=== PATIENT | female | born 1945 | race Caucasian/White ===

== ENCOUNTER → 2016-08-16 | Outpatient (CLI) | payer MEDICARE ==
[~2016-08-16] MED LIST: ALPR.25 PO; DYAZ37.52 PO; SIMV10TA PO; ST J81CH PO
[2016-08-16 09:39] LABS: HEMATOCRIT 40.1 % (35.0-46.0); MEAN CELL VOLUME 88.1 FL (80.0-100.0); MEAN CORPUSCULAR HEMOGLOBIN 29.2 PG (27.0-34.0); MEAN CORPUSCULAR HGB CONC 33.1 % (32.0-36.0); PLATELET COUNT 264 TH/MM3 (150-450); RED BLOOD COUNT 4.55 MIL/MM3 (4.00-5.30); RED CELL DISTRIBUTION WIDTH 12.8 % (11.6-17.2); REVIEW FLAG FINAL; WHITE BLOOD COUNT 9.2 TH/MM3 (4.0-11.0)
[2016-08-16 10:10] LABS: ALKALINE PHOSPHATASE 68 U/L (45-117); ALT (GPT) 26 U/L (10-53); ANION GAP 7 MEQ/L (5-15); AST (GOT) 20 U/L (15-37); BICARBONATE 29.5 MEQ/L (21.0-32.0); BLOOD UREA NITROGEN 22 MG/DL (7-18); CHLORIDE 103 MEQ/L (98-107); GLOMERULAR FILTRATION RATE 75 ML/MIN (>89); GLUCOSE,FASTING 93 MG/DL (74-99); HDL CHOLESTEROL 71.4 MG/DL (40.0-60.0); LDL CHOLESTEROL 50 MG/DL (0-99); POTASSIUM 4.3 MEQ/L (3.5-5.1); SODIUM (NA) 139 MEQ/L (136-145); TOTAL BILIRUBIN ADULT 0.4 MG/DL (0.2-1.0)
== END ==
LOC: CLAB 09:00
PROVIDERS: ATTEND Family Medicine
DX: F03.90 Unspecified dementia, unspecified severity, without behavioral disturbance, psychotic disturbance, mood disturbance, and anxiety (principal); D68.59 Other primary thrombophilia; E78.2 Mixed hyperlipidemia; I67.9 Cerebrovascular disease, unspecified; L20.84 Intrinsic (allergic) eczema; R41.3 Other amnesia
CPT/HCPCS: 36415; 80053; 80061; 84443; 85027

== ENCOUNTER → 2016-10-19 | Outpatient (CLI) | payer MEDICARE ==
[2016-10-19 09:31] LABS: AUTOMATED NEUTROPHIL # 5.2 TH/MM3 (1.8-7.7); BASOPHIL # 0.1 TH/MM3 (0-0.2); BASOPHIL % 1.1 % (0.0-2.0); EOSINOPHIL # 0.4 TH/MM3 (0-0.4); HEMATOCRIT 40.5 % (35.0-46.0); HEMO FLAGS DIFF FINAL; MEAN CELL VOLUME 88.8 FL (80.0-100.0); MEAN CORPUSCULAR HEMOGLOBIN 29.3 PG (27.0-34.0); MONO % 4.6 % (0.0-8.0); NEUT % 57.3 % (16.0-70.0); PLATELET COUNT 287 TH/MM3 (150-450); RED BLOOD COUNT 4.56 MIL/MM3 (4.00-5.30); RED CELL DISTRIBUTION WIDTH 13.3 % (11.6-17.2); WHITE BLOOD COUNT 9.1 TH/MM3 (4.0-11.0)
[2016-10-19 09:53] LABS: ANION GAP 8 MEQ/L (5-15); AST (GOT) 25 U/L (15-37); BICARBONATE 28.4 MEQ/L (21.0-32.0); BLOOD UREA NITROGEN 19 MG/DL (7-18); CHLORIDE 105 MEQ/L (98-107); GLOMERULAR FILTRATION RATE 64 ML/MIN (>89); GLUCOSE,FASTING 94 MG/DL (74-99); POTASSIUM 4.2 MEQ/L (3.5-5.1); SODIUM (NA) 141 MEQ/L (136-145)
[2016-10-19 09:54] LABS: ALT (GPT) 26 U/L (10-53)
[2016-10-19 10:04] LABS: ALKALINE PHOSPHATASE 75 U/L (45-117); TOTAL BILIRUBIN ADULT 0.5 MG/DL (0.2-1.0)
[2016-10-21 11:52] LABS: IGA SERUM 169 mg/dL (81-463); TISSUE TRANSGLUTAMINASE AB IGG ND U/mL (())
[2016-10-21 13:51] LABS: ENDOMYSIAL AB TITER ND (<1:5); TISSUE TRANSGLUTAMINASE AB LESS THAN 1 U/mL (())
== END ==
LOC: CLAB 08:38
PROVIDERS: ATTEND Internal Medicine Gastroenterology
DX: K63.89 Other specified diseases of intestine (principal); R19.7 Diarrhea, unspecified; R10.32 Left lower quadrant pain; R63.4 Abnormal weight loss; Z80.0 Family history of malignant neoplasm of digestive organs
CPT/HCPCS: 36415; 80053; 80074; 82784; 83516; 84443; 85025

== ENCOUNTER → 2016-10-27 | Outpatient (CLI) | payer MEDICARE ==
[2016-10-27 17:17] LABS: C. DIFF EPI 027 PRESUMPTIVE NEGATIVE (NEGATIVE); C. DIFF TOXIN PCR NEGATIVE (NEGATIVE)
[2016-10-29 12:44] LABS: FECAL FAT % FAT 14 % fat (< 20)
== END ==
LOC: PLAB 13:10
PROVIDERS: ATTEND Internal Medicine Gastroenterology
DX: R10.30 Lower abdominal pain, unspecified (principal); R10.32 Left lower quadrant pain; K63.89 Other specified diseases of intestine; R19.7 Diarrhea, unspecified; Z80.0 Family history of malignant neoplasm of digestive organs; R63.4 Abnormal weight loss
CPT/HCPCS: 82710; 87493

== ENCOUNTER → 2017-04-28 | Outpatient (CLI) | payer MEDICARE ==
[2017-04-28 12:22] LABS: HEMATOCRIT 40.4 % (35.0-46.0); HEMOGLOBIN 13.3 GM/DL (11.6-15.3); MEAN CELL VOLUME 90.2 FL (80.0-100.0); MEAN CORPUSCULAR HEMOGLOBIN 29.7 PG (27.0-34.0); MEAN CORPUSCULAR HGB CONC 32.9 % (32.0-36.0); PLATELET COUNT 286 TH/MM3 (150-450); RED BLOOD COUNT 4.48 MIL/MM3 (4.00-5.30); WHITE BLOOD COUNT 8.3 TH/MM3 (4.0-11.0)
[2017-04-28 12:33] LABS: CHOLESTEROL 144 MG/DL (120-200)
[2017-04-28 12:44] LABS: ALKALINE PHOSPHATASE 67 U/L (45-117); ALT (GPT) 24 U/L (10-53); CHOLESTEROL/ HDL RATIO 1.83 RATIO; HDL CHOLESTEROL 78.6 MG/DL (40.0-60.0); LDL CHOLESTEROL 45 MG/DL (0-99); TOTAL BILIRUBIN ADULT 0.5 MG/DL (0.2-1.0); TOTAL PROTEIN 7.9 GM/DL (6.4-8.2); TRIGLYCERIDES 100 MG/DL (42-150)
[2017-04-28 12:49] LABS: ALBUMIN 4.2 GM/DL (3.4-5.0); AST (GOT) 29 U/L (15-37); BLOOD UREA NITROGEN 18 MG/DL (7-18); CALCIUM 9.2 MG/DL (8.5-10.1); CHLORIDE 104 MEQ/L (98-107); CREATININE 0.79 MG/DL (0.50-1.00); GLOMERULAR FILTRATION RATE 72 ML/MIN (>89); GLUCOSE,FASTING 88 MG/DL (74-99); SODIUM (NA) 141 MEQ/L (136-145)
== END ==
LOC: CLAB 11:41
PROVIDERS: ATTEND Family Medicine
DX: F03.90 Unspecified dementia, unspecified severity, without behavioral disturbance, psychotic disturbance, mood disturbance, and anxiety (principal); D68.59 Other primary thrombophilia; E78.2 Mixed hyperlipidemia; I67.9 Cerebrovascular disease, unspecified; L20.84 Intrinsic (allergic) eczema; R41.3 Other amnesia
CPT/HCPCS: 36415; 80053; 80061; 84443; 85027

== ENCOUNTER 2017-06-03 10:44 | Observation (INO) | payer MEDICARE ==
[~2017-06-03] VITALS: Ht 160 cm; Wt 65.0 kg
[2017-06-03 10:46] VITALS: BP 148/101; PULSE 69; RESP 22; TEMP 98.3; O2SAT 98
[2017-06-03] MEDS ORDERED: [UNRECOGNIZED DRUG - REMARK] (11:07)
[2017-06-03] MEDS ORDERED: LISI2.5T3 PO (11:07)
[2017-06-03] MEDS ORDERED: ASPI-516 CHEW (11:07)
[2017-06-03] MEDS ORDERED: CITA10TA4 PO (11:07)
[2017-06-03] MEDS ORDERED: SODIUM CHLORIDE 0.9% FLUSH 10 ML FLUSH IVF PRN (11:15)
[2017-06-03] MEDS ORDERED: SODIUM CHLORID 0.9% 500 ML INJ 500 ML IV ONE (11:15)
[2017-06-03 11:39] LABS: AUTOMATED NEUTROPHIL # 4.7 TH/MM3 (1.8-7.7); BASOPHIL # 0.1 TH/MM3 (0-0.2); BASOPHIL % 0.7 % (0.0-2.0); EOSINOPHIL # 0.1 TH/MM3 (0-0.4); EOSINOPHIL % 1.2 % (0.0-4.0); HEMATOCRIT 38.3 % (35.0-46.0); HEMOGLOBIN 13.3 GM/DL (11.6-15.3); LYMPH % 35.8 % (9.0-44.0); LYMPHOCYTE # 2.9 TH/MM3 (1.0-4.8); MEAN CELL VOLUME 88.4 FL (80.0-100.0); MEAN CORPUSCULAR HEMOGLOBIN 30.7 PG (27.0-34.0); MEAN CORPUSCULAR HGB CONC 34.7 % (32.0-36.0); MEAN PLATELET VOLUME 7.6 FL (7.0-11.0); MONOCYTE # 0.4 TH/MM3 (0-0.9); NEUT % 57.3 % (16.0-70.0); PLATELET COUNT 271 TH/MM3 (150-450); RED BLOOD COUNT 4.33 MIL/MM3 (4.00-5.30); WHITE BLOOD COUNT 8.2 TH/MM3 (4.0-11.0)
--- NOTE | 2017-06-03 11:40 | PD ---
HPI Chief Complaint: Chest Pain Time Seen by Provider: 10:55 Travel History International Travel<30 days: No Contact w/Intl Traveler<30days: No Traveled to known affect area: No History of Present Illness HPI 71y female with a history of IBS and occipital CVA presents to the ED c/o midsternal chest pain that started approximately 1 week ago as she was exercising. Says her pain is rated 7/10, described as heavy, worse with exertion. Says she has radiation of pain and shortness of breath with exertion but otherwise denies radiation. Denies nausea, vomiting, diaphoresis. She takes an ASA daily but no other blood thinners. She denies history of DE, CHF, blood clots. PFSH Past Medical History Asthma: No Autoimmune Disease: No Cancer: No Cardiovascular Problems: Yes COPD: No Cerebrovascular Accident: Yes (occipital ) Diabetes: No Diminished Hearing: No Diverticulitis: Yes Gastrointestinal Disorders: Yes (GERD, IBS) Glaucoma: No Hepatitis: No Hiatal Hernia: Yes Hypertension: Yes Immune Disorder: No Medical other: No Musculoskeletal: Yes (ARTHRITIS) Neurologic: No Psychiatric: No Reproductive: No Respiratory: Yes (SLEEP APNEA) Immunizations Current: Yes Sleep Apnea: No Thyroid Disease: No Influenza Vaccination: No Menopausal: Yes Past Surgical History Abdominal Surgery: Yes (COLON RESECTION, HERNIA VENTRAL) AICD: No Cholecystectomy: Yes Ear Surgery: No Endocrine Surgery: No Eye Surgery: Yes (LEFT EYE CAT. SX.) Genitourinary Surgery: Yes (URETHROTOMY) Hysterectomy: Yes Joint Replacement: No Oral Surgery: Yes (T&A AGE 30) Pacemaker: No Tonsillectomy: Yes Other Surgery: Yes Social History Alcohol Use: No (RARELY) Tobacco Use: No Substance Use: No Allergies-Medications (Allergen,Severity, Reaction): Coded Allergies: Sulfa (Sulfonamide Antibiotics) (Unverified Allergy, Severe, Hives, 06/03/17 ) pentazocine (Unverified Allergy, Severe, INCR HR, 06/03/17) *MDRO Multi-Drug Resistant Organism (Unverified Allergy, Unknown, 06/03/17) MRSA acetaminophen (Unverified Adverse Reaction, Unknown, "MADE ME NUTS", ) oxycodone (Unverified Adverse Reaction, Unknown, "MADE ME NUTS", 06/03/17) Uncoded Allergies: ADHESIVE TAPE (Allergy, Severe, Rash, 12/13/13) PER PATIENT "BAD RASH" "BLISTERS" Reported Meds & Prescriptions Reported Meds & Active Scripts Active Reported Lisinopril 2.5 Mg Tab 2.5 Mg PO DAILY Aspirin 81 Mg Chew 81 Mg CHEW DAILY [memory loss med] Citalopram (Citalopram Hydrobromide) 10 Mg Tab 10 Mg PO DAILY Simvastatin 10 Mg Tab 10 Mg PO DAILY Review of Systems Except as stated in HPI: all other systems reviewed are Neg Physical Exam Narrative GENERAL: WD, WN in NAD, resting comfortably in bed SKIN: Warm and dry. HEAD: Atraumatic. Normocephalic. EYES: Pupils equal and round. No scleral icterus. No injection or drainage. ENT: No nasal bleeding or discharge. Mucous membranes pink and moist. NECK: Trachea midline. No JVD. no lymphadenopathy CARDIOVASCULAR: Regular rate and rhythm. RESPIRATORY: No accessory muscle use. Clear to auscultation. Breath sounds equal bilaterally. GASTROINTESTINAL: Abdomen soft, non-tender, nondistended. MUSCULOSKELETAL: Extremities without clubbing, cyanosis, or edema. No obvious deformities. no CVA tenderness NEUROLOGICAL: Awake and alert. No obvious cranial nerve deficits. Motor grossly within normal limits. Five out of 5 muscle strength in the arms and legs. Normal speech. PSYCHIATRIC: Appropriate mood and affect; insight and judgment normal. Data Data Last Documented VS Vital Signs Date Time Temp Pulse Resp B/P (MAP) Pulse Ox O2 Delivery O2 Flow Rate FiO2 06/03/17 10:46 98.3 69 22 148/101 (117) 98 Room Air Orders Orders Electrocardiogram (06/03/17 11:04) Ckmb (Isoenzyme) Profile (06/03/17 11:04) Complete Blood Count With Diff (06/03/17 11:04) Comprehensive Metabolic Panel (06/03/17 11:04) Magnesium (Mg) (06/03/17 11:04) Prothrombin Time / Inr (Pt) (06/03/17 11:04) Act Partial Throm Time (Ptt) (06/03/17 11:04) Troponin I (06/03/17 11:04) Chest, Single Ap (06/03/17 11:04) Ecg Monitoring (06/03/17 11:04) Bilateral Bp Monitoring (06/03/17 11:04) Iv Access Insert/Monitor (06/03/17 11:04) Oximetry (06/03/17 11:04) Oxygen Administration (06/03/17 11:04) Sodium Chloride 0.9% Flush (Ns Flush) (06/03/17 11:15) Sodium Chlorid 0.9% 500 Ml Inj (Ns 500 M (06/03/17 11:15) CKMB (06/03/17 11:15) CKMB% (06/03/17 11:15) Activity Bed Rest With Brp (06/03/17 12:13) Vital Signs (Adult) Q4H (06/03/17 12:13) Cardiac Rhythm .As Directed (06/03/17 12:13) Notify Dr: Other .PRN (06/03/17 12:13) Notify Parameters (06/03/17 12:13) Resp Oxygen Nasal Cannula (06/03/17 ) Diet Heart Healthy (06/03/17 Lunch) Ckmb (Isoenzyme) Profile (06/03/17 14:15) Ckmb (Isoenzyme) Profile (06/03/17 17:15) Troponin I (06/03/17 14:15) Troponin I (06/03/17 17:15) Electrocardiogram (06/03/17 14:15) Electrocardiogram (06/03/17 17:15) ^ Obtain (06/03/17 12:13) Data Coordinator / Telemetry GENARO.Q8H (06/03/17 12:13) Admit Order (Ed Use Only) (06/03/17 12:13) Labs Laboratory Tests Test 06/03/17 11:15 White Blood Count 8.2 TH/MM3 Red Blood Count 4.33 MIL/MM3 Hemoglobin 13.3 GM/DL Hematocrit 38.3 % Mean Corpuscular Volume 88.4 FL Mean Corpuscular Hemoglobin 30.7 PG Mean Corpuscular Hemoglobin Concent 34.7 % Red Cell Distribution Width 13.0 % Platelet Count 271 TH/MM3 Mean Platelet Volume 7.6 FL Neutrophils (%) (Auto) 57.3 % Lymphocytes (%) (Auto) 35.8 % Monocytes (%) (Auto) 5.0 % Eosinophils (%) (Auto) 1.2 % Basophils (%) (Auto) 0.7 % Neutrophils # (Auto) 4.7 TH/MM3 Lymphocytes # (Auto) 2.9 TH/MM3 Monocytes # (Auto) 0.4 TH/MM3 Eosinophils # (Auto) 0.1 TH/MM3 Basophils # (Auto) 0.1 TH/MM3 CBC Comment DIFF FINAL Differential Comment Prothrombin Time 10.2 SEC Prothromb Time International Ratio 1.0 RATIO Activated Partial Thromboplast Time 25.0 SEC Blood Urea Nitrogen 19 MG/DL Creatinine 0.71 MG/DL Random Glucose 108 MG/DL Total Protein 7.1 GM/DL Albumin 3.9 GM/DL Calcium Level 9.4 MG/DL Magnesium Level 2.1 MG/DL Alkaline Phosphatase 64 U/L Aspartate Amino Transf (AST/SGOT) 19 U/L Alanine Aminotransferase (ALT/SGPT) 23 U/L Total Bilirubin 0.3 MG/DL Sodium Level 141 MEQ/L Potassium Level 3.6 MEQ/L Chloride Level 103 MEQ/L Carbon Dioxide Level 29.8 MEQ/L Anion Gap 8 MEQ/L Estimat Glomerular Filtration Rate 81 ML/MIN Total Creatine Kinase 167 U/L Creatine Kinase MB 2.3 NG/ML Troponin I LESS THAN 0.02 NG/ML MDM Medical Decision Making Medical Screen Exam Complete: Yes Emergency Medical Condition: Yes Differential Diagnosis angina, unstable angina, NSTEMI Narrative Course 71y female with a history of IBS and occipital CVA presents to the ED c/o midsternal chest pain that started approximately 1 week ago as she was exercising. Says her pain is rated 7/10 at its worse, described as heavy, increases with exertion. Currently, the pain is mild. Says she has radiation of pain and shortness of breath with exertion but otherwise denies radiation. Denies nausea, vomiting, diaphoresis. She takes an ASA daily but no other blood thinners. She denies history of DE, CHF, blood clots. States her last stress test was in 2007 and she does not remember her last echocardiogram. Says she follows Dr. Verma but does not know why. Vital signs stable Physical exam findings unremarkable. EKG sinus rhythm without ST elevation or depressions, Incomplete RBBB. This is similar to EKG from 2016 in the EMR. CXR without acute process. Laboratory Tests Test 06/03/17 11:15 White Blood Count 8.2 TH/MM3 Red Blood Count 4.33 MIL/MM3 Hemoglobin 13.3 GM/DL Hematocrit 38.3 % Mean Corpuscular Volume 88.4 FL Mean Corpuscular Hemoglobin 30.7 PG Mean Corpuscular Hemoglobin Concent 34.7 % Red Cell Distribution Width 13.0 % Platelet Count 271 TH/MM3 Mean Platelet Volume 7.6 FL Neutrophils (%) (Auto) 57.3 % Lymphocytes (%) (Auto) 35.8 % Monocytes (%) (Auto) 5.0 % Eosinophils (%) (Auto) 1.2 % Basophils (%) (Auto) 0.7 % Neutrophils # (Auto) 4.7 TH/MM3 Lymphocytes # (Auto) 2.9 TH/MM3 Monocytes # (Auto) 0.4 TH/MM3 Eosinophils # (Auto) 0.1 TH/MM3 Basophils # (Auto) 0.1 TH/MM3 CBC Comment DIFF FINAL Differential Comment Prothrombin Time 10.2 SEC Prothromb Time International Ratio 1.0 RATIO Activated Partial Thromboplast Time 25.0 SEC Blood Urea Nitrogen 19 MG/DL Creatinine 0.71 MG/DL Random Glucose 108 MG/DL Total Protein 7.1 GM/DL Albumin 3.9 GM/DL Calcium Level 9.4 MG/DL Magnesium Level 2.1 MG/DL Alkaline Phosphatase 64 U/L Aspartate Amino Transf (AST/SGOT) 19 U/L Alanine Aminotransferase (ALT/SGPT) 23 U/L Total Bilirubin 0.3 MG/DL Sodium Level 141 MEQ/L Potassium Level 3.6 MEQ/L Chloride Level 103 MEQ/L Carbon Dioxide Level 29.8 MEQ/L Anion Gap 8 MEQ/L Estimat Glomerular Filtration Rate 81 ML/MIN Total Creatine Kinase 167 U/L Creatine Kinase MB 2.3 NG/ML Troponin I LESS THAN 0.02 NG/ML Cardiac enzymes negative. Review of EMR shows last echocardiogram in 2010 with showed EF 55-60%. Stress test not on record here. Pt will be admitted to the chest pain center for observation. Pt did not drink coffee today and she says she ate an egg omelet. Diagnosis Primary Impression: Unstable angina Admitting Information Admitting Physician Requests: Observation Condition: Stable Leanne Haney Jun 03, 2017 11:40
[2017-06-03 11:48] LABS: PROTHROMBIN TIME - PATIENT 10.2 SEC (9.8-11.6)
[2017-06-03 11:51] LABS: ALBUMIN 3.9 GM/DL (3.4-5.0); ALT (GPT) 23 U/L (10-53); AST (GOT) 19 U/L (15-37); BICARBONATE 29.8 MEQ/L (21.0-32.0); BLOOD UREA NITROGEN 19 MG/DL (7-18); CALCIUM 9.4 MG/DL (8.5-10.1); CHLORIDE 103 MEQ/L (98-107); CREATININE 0.71 MG/DL (0.50-1.00); GLOMERULAR FILTRATION RATE 81 ML/MIN (>89); GLUCOSE,RANDOM 108 MG/DL (74-106); MAGNESIUM 2.1 MG/DL (1.5-2.5); SODIUM (NA) 141 MEQ/L (136-145)
[2017-06-03 11:56] LABS: ALKALINE PHOSPHATASE 64 U/L (45-117); TOTAL BILIRUBIN ADULT 0.3 MG/DL (0.2-1.0); TOTAL PROTEIN 7.1 GM/DL (6.4-8.2); TROPONIN I LESS THAN 0.02 NG/ML (0.02-0.05)
--- NOTE | 2017-06-03 11:57 | RADRPT ---
EXAM DATE/TIME: 06/03/2017 11:31 [facility] COMPARISON: No previous studies available for comparison. INDICATIONS : Chest pain. MEDICAL HISTORY : high blood pressure. SURGICAL HISTORY : None. ENCOUNTER: Initial ACUITY: 1 day PAIN SCORE: 7/10 LOCATION: Bilateral chest FINDINGS: A single view of the chest demonstrates the lungs to be symmetrically aerated without evidence of mas s, infiltrate or effusion. The cardiomediastinal contours are unremarkable. Osseous structures are intact. CONCLUSION: No acute disease. Ramos Lloyd MD on June 03, 2017 at 11:54 Board Certified Radiologist. This report was verified electronically.
[2017-06-03 13:10] VITALS: BP 137/61; PULSE 60; RESP 14; O2SAT 96
--- NOTE | 2017-06-03 13:42 | HHI.HP ---
HPI Primary Care Physician Ashley Patrick MD Chief Complaint Chest pain History of Present Illness THIS DICTATION IS AN ERROR. PLEASE [email or web address] H&P IS IN DIFFERENT DICTATION. Past Family Social History Allergies: Coded Allergies: Sulfa (Sulfonamide Antibiotics) (Unverified Allergy, Severe, Hives, 06/03/17 ) pentazocine (Unverified Allergy, Severe, INCR HR, 06/03/17) *MDRO Multi-Drug Resistant Organism (Unverified Allergy, Unknown, 06/03/17) MRSA acetaminophen (Unverified Adverse Reaction, Unknown, "MADE ME NUTS", ) oxycodone (Unverified Adverse Reaction, Unknown, "MADE ME NUTS", 06/03/17) Uncoded Allergies: ADHESIVE TAPE (Allergy, Severe, Rash, 12/13/13) PER PATIENT "BAD RASH" "BLISTERS" Reported Medications Reported Meds & Active Scripts Active Reported Lisinopril 2.5 Mg Tab 2.5 Mg PO DAILY Aspirin 81 Mg Chew 81 Mg CHEW DAILY [memory loss med] Citalopram (Citalopram Hydrobromide) 10 Mg Tab 10 Mg PO DAILY Simvastatin 10 Mg Tab 10 Mg PO DAILY Active Ordered Medications Current Medications Medications (Trade) Dose Ordered Sig/Carina Route Start Time Stop Time Status Last Admin (NS Flush) 2 ml UNSCH PRN IVF 06/03/17 11:15 Physical Exam Vital Signs Vital Signs Date Time Temp Pulse Resp B/P (MAP) Pulse Ox O2 Delivery O2 Flow Rate FiO2 06/03/17 10:46 98.3 69 22 148/101 (117) 98 Room Air Laboratory Laboratory Tests Test 06/03/17 11:15 White Blood Count 8.2 Red Blood Count 4.33 Hemoglobin 13.3 Hematocrit 38.3 Mean Corpuscular Volume 88.4 Mean Corpuscular Hemoglobin 30.7 Mean Corpuscular Hemoglobin Concent 34.7 Red Cell Distribution Width 13.0 Platelet Count 271 Mean Platelet Volume 7.6 Neutrophils (%) (Auto) 57.3 Lymphocytes (%) (Auto) 35.8 Monocytes (%) (Auto) 5.0 Eosinophils (%) (Auto) 1.2 Basophils (%) (Auto) 0.7 Neutrophils # (Auto) 4.7 Lymphocytes # (Auto) 2.9 Monocytes # (Auto) 0.4 Eosinophils # (Auto) 0.1 Basophils # (Auto) 0.1 CBC Comment DIFF FINAL Differential Comment Prothrombin Time 10.2 Prothromb Time International Ratio 1.0 Activated Partial Thromboplast Time 25.0 Blood Urea Nitrogen 19 Creatinine 0.71 Random Glucose 108 Total Protein 7.1 Albumin 3.9 Calcium Level 9.4 Magnesium Level 2.1 Alkaline Phosphatase 64 Aspartate Amino Transf (AST/SGOT) 19 Alanine Aminotransferase (ALT/SGPT) 23 Total Bilirubin 0.3 Sodium Level 141 Potassium Level 3.6 Chloride Level 103 Carbon Dioxide Level 29.8 Anion Gap 8 Estimat Glomerular Filtration Rate 81 Total Creatine Kinase 167 Creatine Kinase MB 2.3 Troponin I LESS THAN 0.02 Result Diagram: 06/03/17 1115 06/03/17 111 Caprinjuan antonio VTE Risk Assessment Caprini VTE Risk Assessment: Mod/High Risk (score >= 2) Caprini Risk Assessment Model Point Value = 1 Point Value = 2 Point Value = 3 Point Value = 5 Age 41-60 Minor surgery BMI > 25 kg/m2 Swollen legs Varicose veins or History of unexplained or recurrent spontaneous Oral contraceptives or hormone replacement Sepsis (< 1 month) Serious lung disease, including pneumonia (< 1 month) Abnormal pulmonary function Acute myocardial infarction Congestive heart failure (< 1 month) History of inflammatory bowel disease Medical patient at bed rest Age 61-74 Arthroscopic surgery Major open surgery (> 45 min) Laparoscopic surgery (> 45 min) Malignancy Confined to bed (> 72 hours) Immobilizing plaster cast Central venous access Age >= 75 History of VTE Family history of VTE Factor V Leiden Prothrombin [id number] Lupus anticoagulant Anticardiolipin antibodies Elevated serum homocysteine Heparin-induced thrombocytopenia Other congenital or acquired thrombophilia Stroke (< 1 month) Elective arthroplasty Hip, pelvis, or leg fracture Acute spinal cord injury (< 1 month) Prophylaxis Regimen Total Risk Factor Score Risk Level Prophylaxis Regimen 0-1 Low Early ambulation 2 Moderate Order ONE of the following: *Sequential Compression Device (SCD) *Heparin 5000 units SQ BID 3-4 Higher Order ONE of the following medications: *Heparin 5000 units SQ TID *Enoxaparin/Lovenox 40 mg SQ daily (WT < 150 kg, CrCl > 30 mL/min) *Enoxaparin/Lovenox 30 mg SQ daily (WT < 150 kg, CrCl > 10-29 mL/min) *Enoxaparin/Lovenox 30 mg SQ BID (WT < 150 kg, CrCl > 30 mL/min) AND/OR *Sequential Compression Device (SCD) 5 or more Highest Order ONE of the following medications: *Heparin 5000 units SQ TID (Preferred with Epidurals) *Enoxaparin/Lovenox 40 mg SQ daily (WT < 150 kg, CrCl > 30 mL/min) *Enoxaparin/Lovenox 30 mg SQ daily (WT < 150 kg, CrCl > 10-29 mL/min) *Enoxaparin/Lovenox 30 mg SQ BID (WT < 150 kg, CrCl > 30 mL/min) AND *Sequential Compression Device (SCD) Vinny Casper Jun 03, 2017 13:42
[2017-06-03 13:54] VITALS: BP 135/90; PULSE 67; RESP 18; TEMP 97.8; O2SAT 97
[2017-06-03] MEDS: PRAVASTATIN SOD 20 MG TAB PO SCH (14:32)
[2017-06-03] MEDS: LISINOPRIL 5 MG TAB PO SCH (14:32)
--- NOTE | 2017-06-03 14:57 | HHI.HP ---
[facility] Primary Care Physician Ashley Patrick MD Chief Complaint Chest pain History of Present Illness This is a 71-year-old female that presents to ED via private vehicle with history of CVA, hypertension, and hyperlipidemia with a complaint of chest pressure for 1 week. States the discomfort is been constant but is intensified when she goes for daily morning walk in the time the discomfort also radiates down left arm. She has tried nothing for the discomfort. She saw her curb and gutter laborer today and was galvez to go to ED. She's had some mild shortness of breath with her symptoms. No nausea diaphoresis. Denies prior history of CAD. States she's only and 1 stress test and was about 10 years ago and that was okay. Denies recent illness. Denies fevers or chills. Review of Systems General: Patient denies fevers, chills recent, and recent travel HEENT: Patient denies headache, sore throat, difficulty swallowing. Cardiovascular: Has the chest discomfort as mentioned above. Denies sensation of heart beating rapidly or irregularly. No syncope. Denies diaphoresis. Respiratory: Mild shortness of breath. Denies inspirational chest discomfort. Denies coughing wheezing or hemoptysis. GI: Patient denies nausea, vomiting, diarrhea, abdominal pain, bloody stools. Musculoskeletal: Patient denies joint pain or edema. Denies calf pain or edema. Neurovascular: Patient denies numbness, tingling, weakness in extremities. Denies headache. Endocrine: Denies polyuria and polydipsia. Hematologic: Denies easy bruising. Skin: Denies rash or itching. Past Family Social History Allergies: Coded Allergies: Sulfa (Sulfonamide Antibiotics) (Unverified Allergy, Severe, Hives, 06/03/17 ) pentazocine (Unverified Allergy, Severe, INCR HR, 06/03/17) *MDRO Multi-Drug Resistant Organism (Unverified Allergy, Unknown, 06/03/17) MRSA acetaminophen (Unverified Adverse Reaction, Unknown, "MADE ME NUTS", ) oxycodone (Unverified Adverse Reaction, Unknown, "MADE ME NUTS", 06/03/17) Uncoded Allergies: ADHESIVE TAPE (Allergy, Severe, Rash, 12/13/13) PER PATIENT "BAD RASH" "BLISTERS" Past Medical History CVA in 2007. Hypertension hyperlipidemia. Denies diabetes and known CAD. Past Surgical History : Resection, hiatal hernia, cataract, tonsillectomy, and cholecystectomy. Reported Medications Reported Meds & Active Scripts Active Reported Lisinopril 2.5 Mg Tab 2.5 Mg PO DAILY Aspirin 81 Mg Chew 81 Mg CHEW DAILY [memory loss med] Citalopram (Citalopram Hydrobromide) 10 Mg Tab 10 Mg PO DAILY Simvastatin 10 Mg Tab 10 Mg PO DAILY Active Ordered Medications Current Medications Medications (Trade) Dose Ordered Sig/Carina Route Start Time Stop Time Status Last Admin (NS Flush) 2 ml UNSCH PRN IVF 06/03/17 11:15 (CeleXA) 10 mg DAILY PO 06/04/17 09:00 (Prinivil) 2.5 mg DAILY PO 06/03/17 13:45 06/03/17 14:32 (Pravachol) 20 mg DAILY PO 06/03/17 13:45 06/03/17 14:32 Family History Denies family history of CAD. Social History Lifetime nonsmoker. Denies alcohol or illicit drugs. Physical Exam Vital Signs Vital Signs Date Time Temp Pulse Resp B/P (MAP) Pulse Ox O2 Delivery O2 Flow Rate FiO2 06/03/17 13:54 97.8 67 18 135/90 (105) 97 06/03/17 13:10 60 14 137/61 (86) 96 Room Air 06/03/17 10:46 98.3 69 22 148/101 (117) 98 Room Air Physical Exam GENERAL: This is a well-nourished, well-developed patient, in no apparent distress. Patient speaks in clear complete sentences. Patient is pleasant. HEENT: Head is atraumatic and normocephalic. Neck is supple without lymphadenopathy and trachea is midline. No JVD or carotid bruits. CARDIOVASCULAR: Regular rate and rhythm without murmurs, gallops, or rubs. RESPIRATORY: Clear to auscultation. Breath sounds equal bilaterally. No wheezes , rales, or rhonchi. Chest wall is nontender. No use of accessory muscles. GASTROINTESTINAL: Abdomen is nontender, nondistended. Abdomen soft. No obvious pulsatile mass or bruit. No CVA tenderness. Strong femoral pulses bilaterally. Normal bowel sounds in all quadrants. MUSCULOSKELETAL: Patient is moving upper and lower extremities freely. No calf tenderness or edema, no Homans sign. Strong pulses in upper and lower extremities. NEUROLOGICAL: Patient is alert and oriented. Cranial nerves 2-12 are grossly intact. No focal deficits and speech is clear. SKIN: No rash and turgor is normal. Laboratory Laboratory Tests Test 06/03/17 11:15 White Blood Count 8.2 Red Blood Count 4.33 Hemoglobin 13.3 Hematocrit 38.3 Mean Corpuscular Volume 88.4 Mean Corpuscular Hemoglobin 30.7 Mean Corpuscular Hemoglobin Concent 34.7 Red Cell Distribution Width 13.0 Platelet Count 271 Mean Platelet Volume 7.6 Neutrophils (%) (Auto) 57.3 Lymphocytes (%) (Auto) 35.8 Monocytes (%) (Auto) 5.0 Eosinophils (%) (Auto) 1.2 Basophils (%) (Auto) 0.7 Neutrophils # (Auto) 4.7 Lymphocytes # (Auto) 2.9 Monocytes # (Auto) 0.4 Eosinophils # (Auto) 0.1 Basophils # (Auto) 0.1 CBC Comment DIFF FINAL Differential Comment Prothrombin Time 10.2 Prothromb Time International Ratio 1.0 Activated Partial Thromboplast Time 25.0 D-Dimer Quantitative (PE/DVT) 0.28 Blood Urea Nitrogen 19 Creatinine 0.71 Random Glucose 108 Total Protein 7.1 Albumin 3.9 Calcium Level 9.4 Magnesium Level 2.1 Alkaline Phosphatase 64 Aspartate Amino Transf (AST/SGOT) 19 Alanine Aminotransferase (ALT/SGPT) 23 Total Bilirubin 0.3 Sodium Level 141 Potassium Level 3.6 Chloride Level 103 Carbon Dioxide Level 29.8 Anion Gap 8 Estimat Glomerular Filtration Rate 81 Total Creatine Kinase 167 Creatine Kinase MB 2.3 Troponin I LESS THAN 0.02 Result Diagram: 06/03/17 1115 06/03/17 1115 Imaging Last 48 hours Impressions Chest X-Ray 06/03/17 1104 Signed Impressions: Service Date/Time: Saturday, June 03, 2017 11:31 - CONCLUSION: No acute disease. Ramos Lloyd MD Course EKG: Initial EKG has sinus rhythm with a complete right bundle branch block without significant ST segment depressions or elevations. Caprini VTE Risk Assessment Caprini VTE Risk Assessment: Mod/High Risk (score >= 2) Caprini Risk Assessment Model Point Value = 1 Point Value = 2 Point Value = 3 Point Value = 5 Age 41-60 Minor surgery BMI > 25 kg/m2 Swollen legs Varicose veins or History of unexplained or recurrent spontaneous Oral contraceptives or hormone replacement Sepsis (< 1 month) Serious lung disease, including pneumonia (< 1 month) Abnormal pulmonary function Acute myocardial infarction Congestive heart failure (< 1 month) History of inflammatory bowel disease Medical patient at bed rest Age 61-74 Arthroscopic surgery Major open surgery (> 45 min) Laparoscopic surgery (> 45 min) Malignancy Confined to bed (> 72 hours) Immobilizing plaster cast Central venous access Age >= 75 History of VTE Family history of VTE Factor V Leiden Prothrombin [id number] Lupus anticoagulant Anticardiolipin antibodies Elevated serum homocysteine Heparin-induced thrombocytopenia Other congenital or acquired thrombophilia Stroke (< 1 month) Elective arthroplasty Hip, pelvis, or leg fracture Acute spinal cord injury (< 1 month) Prophylaxis Regimen Total Risk Factor Score Risk Level Prophylaxis Regimen 0-1 Low Early ambulation 2 Moderate Order ONE of the following: *Sequential Compression Device (SCD) *Heparin 5000 units SQ BID 3-4 Higher Order ONE of the following medications: *Heparin 5000 units SQ TID *Enoxaparin/Lovenox 40 mg SQ daily (WT < 150 kg, CrCl > 30 mL/min) *Enoxaparin/Lovenox 30 mg SQ daily (WT < 150 kg, CrCl > 10-29 mL/min) *Enoxaparin/Lovenox 30 mg SQ BID (WT < 150 kg, CrCl > 30 mL/min) AND/OR *Sequential Compression Device (SCD) 5 or more Highest Order ONE of the following medications: *Heparin 5000 units SQ TID (Preferred with Epidurals) *Enoxaparin/Lovenox 40 mg SQ daily (WT < 150 kg, CrCl > 30 mL/min) *Enoxaparin/Lovenox 30 mg SQ daily (WT < 150 kg, CrCl > 10-29 mL/min) *Enoxaparin/Lovenox 30 mg SQ BID (WT < 150 kg, CrCl > 30 mL/min) AND *Sequential Compression Device (SCD) Assessment and Plan Assessment and Plan * Chest pain: Patient will continue to have serial cardiac enzymes and EKGs for ruling out purposes. She has been seen by Dr. Lucio cardiology and the chest pain center and will likely have a chemical stress a similar morning if she rules out. Patient to be discharged home if her stress test is nonischemic. She should follow-up with her primary care physician and curb and gutter laborer. * Hypertension: Continue current medication. * Hyperlipidemia: Continue current medication. * History of CVA: Continue meds. Patient stable this time. She is agreeable to this plan. Vinny Casper Jun 03, 2017 14:56
[2017-06-03 15:33] LABS: TROPONIN I LESS THAN 0.02 NG/ML (0.02-0.05)
[2017-06-03 18:43] LABS: TROPONIN I LESS THAN 0.02 NG/ML (0.02-0.05)
--- NOTE | 2017-06-03 19:54 | EKG ---
Date Performed: 06/03/2017 Time Performed: 10:57:55 PTAGE: 71 years EKG: Sinus rhythm INCOMPLETE RIGHT BUNDLE BRANCH BLOCK BORDERLINE ECG Since the prior tracing, there has been no signi ficant change PREVIOUS TRACING : 03/11/2016 19.42 DOCTOR: Roberto Snow Interpretating Date/Time 06/03/2017 19:52:13
[2017-06-03 20:45] VITALS: BP 145/67; PULSE 63; RESP 17; TEMP 98.4; O2SAT 96
[2017-06-03 23:00] VITALS: BP 169/77; PULSE 57; RESP 17; TEMP 97.9; O2SAT 96
[2017-06-03] MEDS ORDERED: LISINOPRIL 5 MG TAB PO SCH (23:00)
[2017-06-03 23:40] VITALS: O2SAT 98
[2017-06-04] VITALS (9 sets, daily range): BP systolic 121–181; BP diastolic 57–79; PULSE 53–68; RESP 16–18; TEMP 98.2–98.4; O2SAT 95–98
[2017-06-04] MEDS ORDERED: NITROGLYCERIN 0.4 MG SL 25 TABS/BTL SL PRN (00:15)
[2017-06-04] MEDS ORDERED: IBUPROFEN 400 MG TAB PO PRN (00:15)
[2017-06-04] MEDS ORDERED: NITROGLYCERIN 2% OINT 1 GM PACKET TOPICAL PRN (02:00)
[2017-06-04] MEDS ORDERED: ALUMINUM/MAGNESIUM/SIMETH 30 ML CUP PO PRN (02:00)
[2017-06-04] MEDS ORDERED: CITALOPRAM HYDROBROMIDE 20 MG TAB PO SCH (09:00)
[2017-06-04] MEDS ORDERED: ASPIRIN 325 MG TAB PO SCH (09:00)
[2017-06-04] MEDS: PRAVASTATIN SOD 20 MG TAB PO SCH (09:33)
[2017-06-04] MEDS: LISINOPRIL 5 MG TAB PO SCH (09:33)
[2017-06-04] MEDS ORDERED: REGADENOSON INJ 0.4 MG/5 ML SYR ONE (10:54)
--- NOTE | 2017-06-04 12:43 | RADRPT ---
EXAM DATE/TIME: 06/04/2017 10:52 [facility] COMPARISON: No previous studies available for comparison. INDICATIONS : Chest pain for 1 week. Angina. DOSE: 25.4 mCi Tc99m Myoview at stress. 8.1 mCi Tc99m Myoview at rest. 0.4 mg Lexiscan STRESS SYMPTOMS: Shortness of breath, chest pressure. EJECTION FRACTION: > 70% MEDICAL HISTORY : Hypertension. SURGICAL HISTORY : Colon resection. Hysterectomy. ENCOUNTER: Initial ACUITY: 1 week PAIN SCALE: 3/10 LOCATION: Bilateral chest TECHNIQUE: The patient underwent pharmacologic stress with infusion of prescribed dose. Continuous ECG tracing was monitored during stress. Gated SPECT imaging was performed after stress and conventional SPECT i maging was performed at rest. The examination was performed on a SPECT/CT scanner, both attenuation and non-corrected datasets were reviewed. FINDINGS: DISTRIBUTION: The maximum perfused segment at stress is in the inferior and lateral paul. PERFUSION STUDY: No reversible perfusion defects. Small fixed defect at the apex. GATED STUDY: There is intact wall motion and thickening without hypokinetic or dyskinetic segments. CONCLUSION: 1. No reversible perfusion defects to suggest ischemia. 2. Small fixed defect at the apex. 3. Normal ejection fraction. RISK CATEGORY: Intermediate (1-3% Annual Mortality Rate) John Bucio MD on June 04, 2017 at 12:37 Board Certified Radiologist. This report was verified electronically.
--- NOTE | 2017-06-04 12:54 | HHI.DCPOC ---
Discharge Care Plan Diagnosis: (1) Chest pain, atypical (2) Hyperlipidemia (3) HTN (hypertension) (4) History of CVA (cerebrovascular accident) Goals to Promote Your Health * To prevent worsening of your condition and complications * To maintain your health at the optimal level Directions to Meet Your Goals Take your medications as prescribed Follow your dietary instruction Follow activity as directed Keep your appointments as scheduled Take your immunizations and boosters as scheduled If your symptoms worsen call your PCP, if no PCP go to Urgent Care Center or Emergency Room Smoking is Dangerous to Your Health. Avoid second hand smoke Call the 24-hour hour crisis hotline for domestic abuse at Francisco Lucio MD Jun 04, 2017 12:53
--- NOTE | 2017-06-04 13:10 | EKG ---
Date Performed: 06/03/2017 Time Performed: 15:15:54 PTAGE: 71 years EKG: SINUS BRADYCARDIA INCOMPLETE RIGHT BUNDLE BRANCH BLOCK Since previous tracing, no significa nt change noted BORDERLINE ECG PREVIOUS TRACING : 06/03/2017 10.57 DOCTOR: Francisco Lucio Interpretating Date/Time 06/04/2017 13:08:54
--- NOTE | 2017-06-04 13:10 | EKG ---
Date Performed: 06/03/2017 Time Performed: 18:16:22 PTAGE: 71 years EKG: SINUS BRADYCARDIA WITH FIRST DEGREE AV BLOCK INCOMPLETE RIGHT BUNDLE BRANCH BLOCK When comp ared to previous tracing, AK interval is slightly longer, Otherwise no significant change. ABNORMAL E CG PREVIOUS TRACING : 06/03/2017 15.15 DOCTOR: Francisco Lucio Interpretating Date/Time 06/04/2017 13:09:56
--- NOTE | 2017-06-04 13:12 | EKG ---
Date Performed: 06/03/2017 Time Performed: 23:14:48 PTAGE: 71 years EKG: SINUS BRADYCARDIA INCOMPLETE RIGHT BUNDLE BRANCH BLOCK Borderline first degree AV block. Wh en compared to previous tracing, the NM interval is slightly [place], otherwise no significant change . BORDERLINE ECG PREVIOUS TRACING : 06/03/2017 18.16.22 DOCTOR: Francisco Lucio Interpretating Date/Time 06/04/2017 13:11:38
--- NOTE | 2017-06-04 14:27 | TR ---
Date Performed: 06/04/2017 Time Performed: 11:11:33 DOCTOR: Francisco Lucio DRUG LIST: CLINICAL HISTORY: REASON FOR TEST: REASON FOR ENDING: OBSERVATION: CONCLUSION: Lexiscan stress test was performed under standard four minute protocol. Radionuclid e was injected one minute prior to ending the test. No electrocardiographic abormalities were present to suggest ischemia. Nuclear imaging and interpretation are pending. COMMENTS:
== END 2017-06-04 14:50 | disposition home or self-care (01) ==
LOC: NEPC 10:44 → NEDA 12:16 → NEPHCDU 15:13
DX: R07.89 Other chest pain (principal); I10 Essential (primary) hypertension; E78.5 Hyperlipidemia, unspecified; I45.10 Unspecified right bundle-branch block; G47.30 Sleep apnea, unspecified; K21.9 Gastro-esophageal reflux disease without esophagitis; Z86.73 Personal history of transient ischemic attack (TIA), and cerebral infarction without residual deficits; Z90.710 Acquired absence of both cervix and uterus
CPT/HCPCS: 71045; 78452; 80053; 82550; 82552; 83735; 84484; 85025; 85379; 85610; 85730; 93005; 93017; 96360; 99285; A9502; G0378; J2785; J7040

== ENCOUNTER 2017-07-26 11:50 | Emergency (ER) | payer MEDICARE ==
[~2017-07-26] VITALS: Ht 160 cm; Wt 63.8 kg
[~2017-07-26 11:50] MED LIST changes: -ALPR.25 PO; +ASPI-516 CHEW; +CITA10TA4 PO; -DYAZ37.52 PO; +LISI2.5T3 PO; -ST J81CH PO; +[UNRECOGNIZED DRUG - REMARK]
[2017-07-26 12:03] VITALS: BP 152/74; PULSE 71; RESP 16; TEMP 98.6; O2SAT 92
[2017-07-26] MEDS ORDERED: SODIUM CHLORIDE 0.9% FLUSH 10 ML FLUSH IV FLUSH PRN (12:30)
[2017-07-26 12:59] LABS: AUTOMATED NEUTROPHIL # 6.8 TH/MM3 (1.8-7.7); BASOPHIL # 0.1 TH/MM3 (0-0.2); BASOPHIL % 0.8 % (0.0-2.0); EOSINOPHIL # 0.1 TH/MM3 (0-0.4); EOSINOPHIL % 0.7 % (0.0-4.0); HEMATOCRIT 40.6 % (35.0-46.0); HEMOGLOBIN 13.5 GM/DL (11.6-15.3); LYMPH % 28.2 % (9.0-44.0); MEAN CELL VOLUME 89.5 FL (80.0-100.0); MEAN CORPUSCULAR HEMOGLOBIN 29.7 PG (27.0-34.0); MEAN CORPUSCULAR HGB CONC 33.2 % (32.0-36.0); MEAN PLATELET VOLUME 7.6 FL (7.0-11.0); MONO % 4.8 % (0.0-8.0); MONOCYTE # 0.5 TH/MM3 (0-0.9); NEUT % 65.5 % (16.0-70.0); PLATELET COUNT 266 TH/MM3 (150-450); RED BLOOD COUNT 4.54 MIL/MM3 (4.00-5.30); RED CELL DISTRIBUTION WIDTH 12.4 % (11.6-17.2); WHITE BLOOD COUNT 10.5 TH/MM3 (4.0-11.0)
[2017-07-26 13:01] LABS: BILIRUBIN, URINE NEG (NEG); BLOOD, URINE NEG (NEG); GLUCOSE,URINE NEG (NEG); KETONE, URINE NEG (NEG); NITRITE,URINE NEG (NEG); PH, URINE 7.5 (5.0-8.5); URINE COLOR YELLOW (YELLW/STRAW); URINE LEUKOCYTE ESTERASE NEG (NEG)
[2017-07-26 13:08] LABS: SQUAMOUS EPITHELIAL CELL URINE 0-5 /hpf (0-5); WBC, URINE 0-2 /hpf (0-5)
[2017-07-26 13:08] LABS: CHLORIDE 102 MEQ/L (98-107); SODIUM (NA) 138 MEQ/L (136-145)
[2017-07-26 13:11] LABS: CALCIUM 9.3 MG/DL (8.5-10.1)
[2017-07-26 13:12] LABS: ALBUMIN 3.8 GM/DL (3.4-5.0); BICARBONATE 30.8 MEQ/L (21.0-32.0); BLOOD UREA NITROGEN 21 MG/DL (7-18); GLUCOSE,RANDOM 93 MG/DL (74-106)
[2017-07-26 13:15] LABS: ALT (GPT) 28 U/L (10-53); AST (GOT) 21 U/L (15-37); CREATININE 0.78 MG/DL (0.50-1.00); GLOMERULAR FILTRATION RATE 73 ML/MIN (>89)
[2017-07-26 13:17] LABS: TOTAL BILIRUBIN ADULT 0.4 MG/DL (0.2-1.0); TOTAL PROTEIN 7.6 GM/DL (6.4-8.2)
[2017-07-26 13:18] LABS: ALKALINE PHOSPHATASE 68 U/L (45-117)
--- NOTE | 2017-07-26 13:21 | RADRPT ---
EXAM DATE/TIME: 07/26/2017 12:55 [facility] COMPARISON: CT BRAIN W/O CONTRAST, March 11, 2016, 19:03. INDICATIONS : Episode of confusion and frontal headache. RADIATION DOSE: 59.10 CTDIvol (mGy) MEDICAL HISTORY : Cerebrovascular disease. Hypertension. SURGICAL HISTORY : Tonsillectomy. ENCOUNTER: Initial ACUITY: 2 days PAIN SCALE: 8/10 LOCATION: frontal TECHNIQUE: Multiple contiguous axial images were obtained of the head. Using automated exposure control and adj ustment of the mA and/or kV according to patient size, radiation dose was kept as low as reasonably a chievable to obtain optimal diagnostic quality images. DICOM format image data is available electro nically for review and comparison. FINDINGS: CEREBRUM: Stable small area of encephalomalacia involving the left occipital lobe. The ventricles are normal fo r age. No evidence of midline shift, mass lesion, hemorrhage or acute infarction. No extra-axial fl uid collections are seen. POSTERIOR FOSSA: The cerebellum and brainstem are intact. The 4th ventricle is midline. The cerebellopontine angle i s unremarkable. EXTRACRANIAL: The visualized portion of the orbits is intact. SKULL: The calvaria is intact. No evidence of skull fracture. CONCLUSION: No acute disease. Jeremy Shields Jr., MD on July 26, 2017 at 13:18 Board Certified Radiologist. This report was verified electronically.
[2017-07-26] MEDS ORDERED: CALC600T4 PO (13:24)
[2017-07-26] MEDS ORDERED: DYAZ37.5 PO (13:24)
[2017-07-26] MEDS ORDERED: NAME10TA PO (13:24)
[2017-07-26] MEDS ORDERED: VITA100064 PO (13:24)
[2017-07-26] MEDS ORDERED: MONT10TA2 PO (13:24)
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
[2017-07-26 13:53] VITALS: BP 150/74
--- NOTE | 2017-07-27 23:01 | EKG ---
Date Performed: 07/26/2017 Time Performed: 13:13:50 PTAGE: 71 years EKG: Sinus rhythm INCOMPLETE RIGHT BUNDLE BRANCH BLOCK BORDERLINE ECG PREVIOUS TRACING : 06/03/2017 23.14 Since the previous tracing, no significant change noted DOCTOR: Gopal Mckenzie Interpretating Date/Time 07/27/2017 23:00:32
== END 2017-07-26 13:54 | disposition home or self-care (01) ==
LOC: PHED 11:50
DX: R41.0 Disorientation, unspecified (principal); I10 Essential (primary) hypertension; E78.5 Hyperlipidemia, unspecified; I45.19 Other right bundle-branch block; Z86.73 Personal history of transient ischemic attack (TIA), and cerebral infarction without residual deficits
CPT/HCPCS: 70450; 80053; 81001; 85025; 93005; 99285

== ENCOUNTER → 2017-10-26 | Outpatient (CLI) | payer MEDICARE ==
[~2017-10-26] MED LIST changes: +CALC600T4 PO; +DYAZ37.5 PO; -LISI2.5T3 PO; +MONT10TA2 PO; +NAME10TA PO; +VITA100064 PO; -[UNRECOGNIZED DRUG - REMARK]
[2017-10-26 12:55] LABS: HEMATOCRIT 39.8 % (35.0-46.0); HEMOGLOBIN 13.6 GM/DL (11.6-15.3); MEAN CELL VOLUME 89.5 FL (80.0-100.0); MEAN CORPUSCULAR HEMOGLOBIN 30.7 PG (27.0-34.0); MEAN CORPUSCULAR HGB CONC 34.2 % (32.0-36.0); MEAN PLATELET VOLUME 7.9 FL (7.0-11.0); PLATELET COUNT 274 TH/MM3 (150-450); RED BLOOD COUNT 4.45 MIL/MM3 (4.00-5.30); RED CELL DISTRIBUTION WIDTH 12.6 % (11.6-17.2); WHITE BLOOD COUNT 9.2 TH/MM3 (4.0-11.0)
[2017-10-26 13:14] LABS: BLOOD UREA NITROGEN 21 MG/DL (7-18); CREATININE 0.79 MG/DL (0.50-1.00); GLOMERULAR FILTRATION RATE 72 ML/MIN (>89)
[2017-10-26 13:15] LABS: ALKALINE PHOSPHATASE 70 U/L (45-117); ALT (GPT) 22 U/L (10-53); AST (GOT) 26 U/L (15-37); CALCIUM 9.5 MG/DL (8.5-10.1); GLUCOSE,FASTING 84 MG/DL (74-99); TOTAL PROTEIN 7.2 GM/DL (6.4-8.2)
[2017-10-26 13:16] LABS: BICARBONATE 28.4 MEQ/L (21.0-32.0); CHLORIDE 107 MEQ/L (98-107); SODIUM (NA) 143 MEQ/L (136-145); TOTAL BILIRUBIN ADULT 0.6 MG/DL (0.2-1.0)
[2017-10-26 13:19] LABS: CHOLESTEROL 133 MG/DL (120-200); CHOLESTEROL/ HDL RATIO 1.91 RATIO; HDL CHOLESTEROL 69.6 MG/DL (40.0-60.0); LDL CHOLESTEROL 35 MG/DL (0-99); TRIGLYCERIDES 143 MG/DL (42-150)
== END ==
LOC: CLAB 12:00
PROVIDERS: ATTEND Family Medicine
DX: F03.90 Unspecified dementia, unspecified severity, without behavioral disturbance, psychotic disturbance, mood disturbance, and anxiety (principal); D68.59 Other primary thrombophilia; E78.2 Mixed hyperlipidemia; I67.9 Cerebrovascular disease, unspecified; L20.84 Intrinsic (allergic) eczema; R41.3 Other amnesia
CPT/HCPCS: 36415; 80053; 80061; 84443; 85027

== ENCOUNTER 2018-03-26 11:46 | Observation (INO) ==
[2018-03-26] MEDS ORDERED: Sod Chloride 0.9% Inj 1,000 ML IV.SIG SCH (12:00)
--- NOTE | 2018-03-26 12:15 | XR ---
EXAM DATE: 03/26/2018 12:10 PM EST AGE/SEX: 72 years / Female INDICATIONS: Chest pain CLINICAL DATA: This is the patient's initial encounter. Patient reports that signs and symptoms have been present for 1 day and indicates a pain score of 0/10. MEDICAL/SURGICAL HISTORY: Hypertension. None. COMPARISON: [facility], CHEST SINGLE AP, 06/03/2017. . FINDINGS: The heart size is normal. The lungs are free of focal consolidation. There is a questionable nodule s een at the right base. No effusion is seen. CONCLUSION: No acute abnormality is seen. Possible nodule in the right base. This could be further evaluated with a CT examination. The patient is scheduled for a CTA of the chest, abdomen, and pelvis. Electronically signed by: Caden Boateng MD 03/26/2018 12:13 PM EST
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
[2018-03-26 12:29] LABS: Baso # (Auto) 0.1 th/mm3 (0.0-0.2); Baso % (Auto) 0.8 % (0.0-2.0); Eos # (Auto) 0.1 th/mm3 (0.0-0.4); Eos % (Auto) 1.9 % (0.0-4.0); Hematocrit 37.7 % (35.0-46.0); Hemoglobin 13.1 gm/dL (11.6-15.3); Lymph # (Auto) 2.7 th/mm3 (1.0-4.8); Lymph % (Auto) 35.4 % (9.0-44.0); Mean Corpuscular HGB Conc 34.6 % (32.0-36.0); Mean Corpuscular Hemoglobin 32.4 pg (27.0-34.0); Mean Corpuscular Volume 93.5 fL (80.0-100.0); Mean Platelet Volume 8.1 fL (7.0-11.0); Mono # (Auto) 0.5 th/mm3 (0.0-0.9); Mono % (Auto) 6.3 % (0.0-8.0); Neut # (Auto) 4.3 th/mm3 (1.8-7.7); Neut % (Auto) 55.6 % (16.0-70.0); Platelet Count 231 th/mm3 (150-450); Red Blood Count 4.03 mil/mm3 (4.00-5.30); Red Cell Distribution Width 13.1 % (11.6-17.2); White Blood Count 7.7 th/mm3 (4.0-11.0)
[2018-03-26 12:39] LABS: Prothrombin Time 10.2 sec (9.8-11.6)
[2018-03-26 12:52] LABS: Anion Gap 9 meq/L (5-15); Aspartate Aminotransferase 25 U/L (15-37); Blood Urea Nitrogen 18 mg/dL (7-18); Carbon Dioxide 29.5 meq/L (21.0-32.0); Chloride 106 meq/L (98-107); Glomerular Filtration Rate 65 mL/min (>89); Glucose,Random 94 mg/dL (74-106); Lipase 186 U/L (73-393); Potassium 3.8 meq/L (3.5-5.1); Sodium 144 meq/L (136-145)
[2018-03-26 12:53] LABS: Alanine Aminotransferase 25 U/L (10-53)
[2018-03-26 12:57] LABS: Alkaline Phosphatase 61 U/L (45-117); Creatine Kinase 157 U/L (26-192); Total Protein 7.1 g/dL (6.4-8.2)
[2018-03-26 13:09] LABS: Creatine Kinase MB 1.5 ng/mL (0.5-3.6)
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
[2018-03-26] MEDS ORDERED: Aspirin 325 MG Tablet PO ONE (15:16)
[2018-03-26 16:28] LABS: Creatine Kinase 138 U/L (26-192)
[2018-03-26 16:40] LABS: Creatine Kinase MB 1.7 ng/mL (0.5-3.6)
[2018-03-26] MEDS ORDERED: Acetaminophen 325 MG Tablet PO PRN (17:06)
[2018-03-26] MEDS ORDERED: Sod Chloride 0.9% Inj 1,000 ML IV.CONT SCH (17:15)
[2018-03-26] MEDS: Heparin - SQ 10,000 UNITS/ML Vial SQ SCH (17:35)
[2018-03-26] MEDS ORDERED: Montelukast 10 MG Tablet PO SCH (18:00)
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
[2018-03-26 19:17] LABS: Creatine Kinase 150 U/L (26-192)
[2018-03-26 19:32] LABS: Creatine Kinase MB 1.6 ng/mL (0.5-3.6)
[2018-03-26 20:13] VITALS: RESP 17
[2018-03-27 04:50] VITALS: BP 135/62; TEMP 98; O2SAT 96
[2018-03-27] MEDS: Heparin - SQ 10,000 UNITS/ML Vial SQ SCH (05:30)
[2018-03-27 06:27] LABS: Creatine Kinase 142 U/L (26-192)
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
[2018-03-27] MEDS ORDERED: Folic Acid 1 MG Tablet PO SCH (09:00)
[2018-03-27] MEDS ORDERED: Calcium Carbonate 500 MG Tablet PO SCH (09:00)
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
--- NOTE | 2018-03-27 12:49 | ECG ---
Date Performed: 03/26/2018 Time Performed: 12:03:03 PTAGE: 72 years EKG: SINUS BRADYCARDIA INCOMPLETE RIGHT BUNDLE BRANCH BLOCK BORDERLINE ECG PREVIOUS TRACING : 07/26/2017 13.13 Since previous tracing, no significant change noted DOCTOR: Khoi Whaley Interpretating Date/Time 03/27/2018 12:47:12
--- NOTE | 2018-03-27 12:49 | ECG ---
Date Performed: 03/26/2018 Time Performed: 15:31:12 PTAGE: 72 years EKG: SINUS BRADYCARDIA INCOMPLETE RIGHT BUNDLE BRANCH BLOCK BORDERLINE ECG PREVIOUS TRACING : 03/26/2018 12.03 Since previous tracing, no significant change noted DOCTOR: Khoi Whaley Interpretating Date/Time 03/27/2018 12:46:49
[2018-03-27 13:53] VITALS: PULSE 79
[2018-03-27] MEDS ORDERED: Aspirin 325 MG Tablet PO SCH (17:10)
--- NOTE | 2018-03-27 19:04 | ECHRPT ---
Indication: SYNCOPE CONCLUSIONS The left ventricular systolic function is normal with an estimated ejection fraction in the range of 60-65%. Doppler parameters are consistent with impaired left ventricular relaxtion (grade 1 diastolic dysfun ction). Trace mitral valve regurgitation. Mild aortic valve regurgitation. BP: / HR: Rhythm: Sinus MEASUREMENTS (Male / Female) Normal Values Technical Quality:Fair 2D ECHO LV Diastolic Diameter PLAX 4.5 cm 4.2 - 5.9 / 3.9 - 5.3 cm LV Systolic Diameter PLAX 3.1 cm IVS Diastolic Thickness 1.1 cm 0.6 - 1.0 / 0.6 - 0.9 cm LVPW Diastolic Thickness 1.1 cm 0.6 - 1.0 / 0.6 - 0.9 cm LV Relative Wall Thickness 0.5 RV Internal Dim ED PLAX 2.2 cm LVOT Diameter 1.9 cm LA Systolic Diameter LX 3.1 cm 3.0 - 4.0 / 2.7 - 3.8 cm LV Ejection Fraction MOD 4C 64.9 % LV Ejection Fraction 4C AL 66.5 % M-MODE Aortic Root Diameter MM 2.3 cm LA Systolic Diameter MM 3.7 cm LA Ao Ratio MM 1.6 AV Cusp Separation MM 1.6 cm DOPPLER AV Peak Velocity 122.0 cm/s AV Peak Gradient 6.0 mmHg AI Peak Velocity 341.5 cm/s AI Peak Gradient 46.6 mmHg AI Pressure Half Time 546.0 ms LVOT Peak Velocity 91.8 cm/s LVOT Peak Gradient 3.4 mmHg AV Area Cont Eq pk 2.1 cm MV Area PHT 2.9 cm Mitral E Point Velocity 78.0 cm/s Mitral A Point Velocity 97.2 cm/s Mitral E to A Ratio 0.8 LV E' Lateral Velocity 5.4 cm/s Mitral E to LV E' Lateral Ratio 14.6 LV E' Septal Velocity 6.9 cm/s Mitral E to LV E' Septal Ratio 11.3 PV Peak Velocity 90.9 cm/s PV Peak Gradient 3.3 mmHg FINDINGS LEFT VENTRICLE The left ventricular systolic function is normal with an estimated ejection fraction in the range of 60-65%. Normal left ventricular size. Wall thickness is measured at the upper limits of normal. No regional wall motion abnormalities are present. Doppler parameters are consistent with impaired left ventricular relaxtion (grade 1 diastolic dysfun ction). RIGHT VENTRICLE Normal right ventricular size and systolic function. LEFT ATRIUM The left atrial size is mildly dilated. RIGHT ATRIUM The right atrial size is normal. ATRIAL SEPTUM Normal atrial septal thickness without atrial level shunting by limited color doppler interrogation. AORTA The aortic root and proximal ascending aorta are normal in size on limited imaging. MITRAL VALVE Structurally normal mitral valve. Trace mitral valve regurgitation. No mitral valve stenosis. AORTIC VALVE Trileaflet aortic valve. Mild aortic valve regurgitation. No aortic valve stenosis. TRICUSPID VALVE Structurally normal tricuspid valve. No tricuspid valve stenosis or regurgitation. PULMONARY VALVE The pulmonary valve is not well visualized. VESSELS The inferior vena cava is normal in size. PERICARDIUM No pericardial effusion. Sabas Juárez DO (Electronically Signed) Final Date:27 March 2018 19:03
--- NOTE | 2018-03-28 06:42 | ECG ---
Date Performed: 03/27/2018 Time Performed: 02:02:58 PTAGE: 72 years EKG: SINUS BRADYCARDIA INCOMPLETE RIGHT BUNDLE BRANCH BLOCK BORDERLINE ECG PREVIOUS TRACING : 03/26/2018 18.13 Since the previous tracing, no significant change noted DOCTOR: Hieu Vargas Interpretating Date/Time 03/28/2018 06:41:47
--- NOTE | 2018-03-28 06:51 | ECG ---
Date Performed: 03/26/2018 Time Performed: 18:13:21 PTAGE: 72 years EKG: Sinus rhythm INCOMPLETE RIGHT BUNDLE BRANCH BLOCK BORDERLINE ECG PREVIOUS TRACING : 03/26/2018 15.31 Since the previous tracing, no significant change noted DOCTOR: Hieu Vargas Interpretating Date/Time 03/28/2018 06:48:03
== END 2018-03-27 14:47 | disposition home or self-care (01) ==
LOC: NEDA 11:46 → NEPE 11:46 → NEDA 18:36 → NEPGCP 19:24
PROVIDERS: ADMIT Hospitalist; ATTEND Hospitalist